=== PATIENT | female | born 1985 | race Caucasian/White ===

== ENCOUNTER 2018-02-04 10:55 | Emergency (ER) | payer SELFPAY ==
[~2018-02-04] VITALS: Ht 165.1 cm; Wt 63.6 kg
[2018-02-04 11:01] VITALS: Ht 165.1 cm; Wt 63.6 kg
[2018-02-04] MEDS ORDERED: VISTARIL25 MG PO (11:23)
[2018-02-04] MEDS ORDERED: MEDROL DOSE PACK4 MG PO (11:23)
[2018-02-04 11:43] VITALS: BP 119/67
== END 2018-02-04 11:44 | disposition home or self-care (01) ==
LOC: D.ER 10:55
DX: L25.9 Unspecified contact dermatitis, unspecified cause (principal)